=== PATIENT | female | born 1945 | race Two or more races ===

== ENCOUNTER 2022-07-12 13:37 | Emergency (ER) | payer MEDICARE, OTHER ==
[~2022-07-12] VITALS: Ht 160 cm; Wt 70.0 kg
[2022-07-12 14:25] VITALS: BP 93/65
== END 2022-07-12 19:40 | disposition left against medical advice (07) ==
LOC: ER 13:37
DX: M25.512 Pain in left shoulder (principal); Z53.21 Procedure and treatment not carried out due to patient leaving prior to being seen by health care provider; W19.XXXA Unspecified fall, initial encounter; Y93.89 Activity, other specified; Y92.89 Other specified places as the place of occurrence of the external cause; Y99.8 Other external cause status
CPT/HCPCS: 73030